=== PATIENT | male | born 1950 | race Caucasian/White ===

== ENCOUNTER 2020-09-07 | Emergency (ER) | payer OTHER, BC ==
--- OUTSIDE RECORDS SUMMARY | 2020-09-07 17:47 | XMS REPORT | Continuity of Care Document ---
:1950 Author Organization [facility] t Address [address] [place] [address] Care Team Providers Name Role Phone Giorgio XIAO, T. Primary Care Physician Janes XIAO, H Attending Clinician Only, Test Attending Clinician Unavailable Problems Condition Condition Condition Status Onset Resolution Last Treating Co mments Source Name Details Category Date Date Treatment Clinician Date Metatarsal Metatarsal Disease Active Overview : Geary priya of priya of - Added Methodi right foot right foot 00:00: automatic st 00 ally from request for surgery [id number] Acquired Acquired Disease Active Overview: Yan renner deformity deformity - Added Meth raymond of right of right 00:00: automatic st toe toe 00 ally from request for surgery [id number] Allergies, Adverse Reactions, Alerts This patient has no known allergies or adverse reactions. Family History Family Member Diagnosis Comments Start Date Stop Date Source Natural father COPD [facility] thodist Natural mother Cancer [facility] thodi Social History Social Habit Start Date Stop Date Quantity Comments Source Sex Assigned At [facility] ethodist Tobacco use and 2019-01-07 2019-01-07 Never used [facility] ethodist exposure 00:00:00 00:00:00 Alcohol intake 2019-01-07 2019-01-07 Current drinker of [facility] 00:00:00 00:00:00 alcohol (finding) Alcohol Comment 2018-01-06 2018-01-06 occasional [facility] ethodist 00:00:00 00:00:00 Smoking Status Start Date Stop Date Source Never smoker Geary Methodis t Medications Ordered Filled Start Stop Current Ordering Indication Dosage Frequency Signature Comments Components Source Medication Medication Date Date Medication? Clinician (SIG) Name Name rosuvastati 2018 Yes 40mg QD Take 40 mg Oh edouard (CRESTOR) 4-05 by mouth Meth raymond 40 MG 11:03: daily. st tablet 10 niacin Yes 500mg QD Take 500 [place] (NIASPAN 4-05 mg by Methodi EXTENDED-RE 11:03: mouth st LEASE) 500 10 nightly. MG CR tablet lisinopril Yes 10mg QD Take 10 mg [place] (PRINIVIL,Z 4-05 by mouth Meth raymond ESTRIL) 10 11:03: daily. st mg tablet 10 Procedures This patient has no known procedures. Plan of Care Planned Activity Planned Date Details Comments Source Future Scheduled 2020-05-05 INFLUENZA VACCINE [facility] Test 00:00:00 [code = INFLUENZA VACCINE] Future Scheduled 2016-12-30 65+ PNEUMOCOCCAL [facility] Test 00:00:00 VACCINE (1 of 1 - PPSV23) [code = 65+ PNEUMOCOCCAL VACCINE (1 of 1 - PPSV23)] Future Scheduled 2001-12-30 COLONOSCOPY SCREENING [facility] Test 00:00:00 [code = COLONOSCOPY SCREENING] Future Scheduled 2001-12-30 SHINGLES VACCINES (#1) [facility] [facility] Test 00:00:00 [code = SHINGLES VACCINES (#1)] Encounters Start End Encounter Admission Attending Care Care Encounter Source Date/Time Date/Time Type Type Clinicians Facility Department ID 2020-04-23 2020-04-23 Telephone KARAN Marrero [id number] 00:00:00 00:00:00 Mike [facility] [id number] [facility] [id number] 2020-04-22 2020-04-22 Laboratory Only, Pcp [facility] [id number] 15:23:29 15:38:29 Only Test PRIMARY [id number] CARE [id number] LANCE [id number] Results This patient has no known results.
--- OUTSIDE RECORDS SUMMARY | 2020-09-07 17:47 | XMS REPORT | Clinical Summary ---
:1950 Author Organization [facility] Address [address] [place] [address] Care Team Providers Name Role Phone Christ Alvares MD Primary Care Provider Allergies No Known Active Allergies Medications Medication Sig Dispensed Refills Start Date End Date Status rosuvastatin (CRESTOR) Take 40 mg by 0 Active 40 MG tablet mouth daily. niacin (NIASPAN Take 500 mg by 0 Active EXTENDED-RELEASE) 500 MG mouth nightly. CR tablet lisinopril Take 10 mg by 0 Activ e (PRINIVIL,ZESTRIL) 10 mg mouth daily. tablet Active Problems Problem Noted Date Metatarsalgia of right foot 01/04/2018 Overview: Added automatically from request for mayur joanie [id number] Acquired deformity of right toe 01/04/2018 Overview: Added automatically from request for mayur joanie [id number] Surgical History Surgery Date Site/Laterality Comments KNEE ARTHROSCOPY acl repair meni scus repair x3 OSTECTOMY, METATARSAL HEAD 01/07/2018 Foot/Right Proce dure: Right 5th metatarsal osteotomy, 5th t oe metatarsophalang eal capsulotomy, possible flexor digitorum longus to extensor de la torre sfer, Partial excision proxima l phalanx of small toe; Surgeon: Zoila Salazar II, MD; Location: [facility] Main OR; Service: Orthope dics; Laterality: Right; Medical devices from this surgery are in the Impla nts section. Medical History Medical History Date Comments Immunization not carried out for other reason Exercises 3 to 4 times per week rides bi ke swim, run about an hour no c/p no dyspnea Staph infection right knee Dental crown present Hypertension Elevated cholesterol Family History Medical History Relation Name Comments COPD Father Cancer Mother Relation Name Status Comments Brother Alive Father Mother Social History Tobacco Use Types Packs/Day Years Used Date Never Smoker Smokeless Tobacco: Never Used Alcohol Use Drinks/Week oz/Week Comments Yes occasional Sex Assigned at Date Recorded Male 01/07/2019 10:16 AM CDT Last Filed Vital Signs Not on file Plan of Treatment Health Maintenance Due Date Last Done Comments COLONOSCOPY SCREENING 12/30/2001 SHINGLES VACCINES (#1) 12/30/2001 65+ PNEUMOCOCCAL VACCINE (1 of 1 - PPSV23) 12/30/2016 INFLUENZA VACCINE 05/05/2020 Implants Implanted Type Area Television Equipment Operator Device Shelf Model / Identifier Expiration Serial / Date Lot Screw Crtcl Slf-Tpng W/ T6 Strdrv Recs Ss 2mm 16mm - [id number] Orthopedic Right: SYNTHES TRAUMA [id number] / Implanted: Qty: 1 on 01/07/2018 by Juan J Salazar II, MD at [facility] Tra[employer] Foot [employer] / Implants VENDOR LOT NA Bit Drl 1.5x96mm Mini Qcp W/ Depth Juan J - [id number] Orthopedic N/A: N/A SYNTHES TRAUMA [id number] / Implanted: 01/07/2018 at [facility] (Quantity not on file) Traum a AND RECON / Implants Results Not on fileafter 09/07/2019
--- NOTE | 2020-09-07 18:32 | EDPHYS ---
Physician Documentation [facility] Name: Lopez Antonio Age: 69 yrs Sex: Male : 1950 Arrival Date: 09/07/2020 Time: 17:49 Bed Waiting Private MD: BANDAR Physician Wes Contreras HPI: 09/07 18:42 This 69 yrs old Male presents to ER via Ambulatory with complaints of Foot kb Infection. 18:42 The patient presents with cellulitis of the lateral side of left foot. Description: kb erythematous, warm. Onset: The symptoms/episode began/occurred this morning. Possible cause(s): unknown. Associated signs and symptoms: Pertinent positives: erythema, swelling, Pertinent negatives: discharge, drainage, foreign body sensation, fever, headache, nausea, shortness of breath, vomiting. Modifying factors: the symptoms are alleviated by nothing, the symptoms are aggravated by touching. Severity of symptoms: At their worst the symptoms were mild, in the emergency department the symptoms are unchanged. The patient has experienced a previous episode. The patient has not recently seen a physician. Pt states he noticed pain to lateral left foot last night, then this morning it was warm, slightly swollen and red. States he had the same infection in June and antibiotics got rid of it so he came in to see if he could get antibiotics before it got worse. Historical: - Allergies: 18:27 No Known Allergies; ss - Home Meds: 18:27 Lisinopril Oral [Active]; Crestor oral oral [Active]; ss - PMHx: 18:27 Hypertension; High Cholesterol; ss - PSHx: 18:27 L knee; ss - Immunization history:: Adult Immunizations up to date. - Social history:: Smoking status: Patient denies any tobacco usage or history of. ROS: 18:41 Constitutional: Negative for fever, chills, and weight loss, Cardiovascular: Negative kb for chest pain, palpitations, and edema, Respiratory: Negative for shortness of breath, cough, wheezing, and pleuritic chest pain, Abdomen/GI: Negative for abdominal pain, nausea, vomiting, diarrhea, and constipation, MS/Extremity: Negative for injury and deformity, Neuro: Negative for headache, weakness, numbness, tingling, and seizure. 18:41 Skin: Positive for cellulitis, erythema, of the lateral side of left foot. Exam: 18:41 Constitutional: This is a well developed, well nourished patient who is awake, alert, kb and in no acute distress. Head/Face: Normocephalic, atraumatic. MS/ Extremity: Pulses equal, no cyanosis. Neurovascular intact. Full, normal range of motion. Neuro: Awake and alert, GCS 15, oriented to person, place, time, and situation. Cranial nerves II-XII grossly intact. Motor strength 5/5 in all extremities. Sensory grossly intact. Cerebellar exam normal. Normal gait. 18:41 Respiratory: the patient does not display signs of respiratory distress, Respirations: normal. 18:41 Skin: cellulitis, that is mild, on the lateral side of left foot. Vital Signs: 18:25 BP 180 / 103; Pulse 63; Resp 16; Temp 97.8(TE); Pulse Ox 99% on R/A; Weight 86.18 kg; ss Height 6 ft. 2 in. (187.96 cm); Pain 5/10; 18:25 Body Mass Index 24.39 (86.18 kg, 187.96 cm) ss MDM: 18:30 Patient medically screened. kb 18:40 Data reviewed: vital signs, nurses notes. Data interpreted: Pulse oximetry: on room air kb is 99 %. Interpretation: normal. Counseling: I had a detailed discussion with the patient and/or guardian regarding: the historical points, exam findings, and any diagnostic results supporting the discharge/admit diagnosis, the need for outpatient follow up, a family practitioner, to return to the emergency department if symptoms worsen or persist or if there are any questions or concerns that arise at home. Administered Medications: No medications were administered Disposition: 09/08 08:26 Co-signature as Attending Physician, Wes Contreras MD I agree with the assessment and baljinder plan of care. Disposition: 09/07/20 18:31 Discharged to Home. Impression: Cellulitis of left lower limb - foot. - Condition is Stable. - Discharge Instructions: Cellulitis, Adult, Welk-en-Uzaj. - Prescriptions for Keflex 500 mg Oral Capsule - take 1 capsule by ORAL route every 8 hours for 10 days; 30 capsule. Bactrim DS 800- 160 mg Oral Tablet - take 1 tablet by ORAL route every 12 hours for 10 days; 20 tablet. - Medication Reconciliation Form, Thank You Letter, Antibiotic Education, Prescription Opioid Use form. - Follow up: Emergency Department; When: As needed; Reason: Worsening of condition. Follow up: Private Physician; When: 2 - 3 days; Reason: Recheck today's complaints, Continuance of care, Re-evaluation by your physician. Signatures: Sapna Marroquin, CHRIS-Sunshine ANNAP-Wes Arrieta MD MD cha Smirch, Shelby, RN RN ss Corrections: (The following items were deleted from the chart) 09/07 18:35 18:31 09/07/2020 18:31 Discharged to Home. Impression: Cellulitis of left lower limb - ss foot. Condition is Stable. Forms are Medication Reconciliation Form, Thank You Letter, Antibiotic Education, Prescription Opioid Use. Follow up: Emergency Department; When: As needed; Reason: Worsening of condition. Follow up: Private Physician; When: 2 - 3 days; Reason: Recheck today's complaints, Continuance of care, Re-evaluation by your physician. kb
--- NOTE | 2020-09-07 18:32 | ER ---
Nurse's Notes [facility] Name: Lopez Antonio Age: 69 yrs Sex: Male : 1950 Arrival Date: 09/07/2020 Time: 17:49 Bed Waiting Private MD: Diagnosis: Cellulitis of left lower limb-foot Presentation: 09/07 18:25 Chief complaint: Patient states: warmth, redness and pain to area on L foot that began ss last night. Pt reports he has had this similar infection back in June. Coronavirus screen: Client denies travel out of the [place] in the last 14 days. Ebola Screen: Patient denies exposure to infectious person. Patient denies travel to an Ebola-affected area in the 21 days before illness onset. Initial Sepsis Screen: Does the patient meet any 2 criteria? No. Patient's initial sepsis screen is negative. Does the patient have a suspected source of infection? Yes: Skin breakdown/wound. Risk Assessment: Do you want to hurt yourself or someone else? Patient reports no desire to harm self or others. Onset of symptoms was September 06, 2020. 18:25 Method Of Arrival: Ambulatory ss 18:25 Acuity: LUISA 4 ss Historical: - Allergies: 18:27 No Known Allergies; ss - Home Meds: 18:27 Lisinopril Oral [Active]; Crestor oral oral [Active]; ss - PMHx: 18:27 Hypertension; High Cholesterol; ss - PSHx: 18:27 L knee; ss - Immunization history:: Adult Immunizations up to date. - Social history:: Smoking status: Patient denies any tobacco usage or history of. Screenin:30 Abuse screen: Denies threats or abuse. Denies injuries from another. Nutritional ss screening: No deficits noted. Tuberculosis screening: Never had TB. Fall Risk None identified. Assessment: 18:30 General: Appears in no apparent distress. comfortable, Behavior is calm, cooperative. ss Pain: Complains of pain in ball of left foot Pain currently is 5 out of 10 on a pain scale. Quality of pain is described as tender. Neuro: Level of Consciousness is awake, alert, obeys commands, Oriented to person, place, time, situation. Cardiovascular: Pulses are palpable in right dorsalis pedis artery and left dorsalis pedis artery. Respiratory: Airway is patent Respiratory effort is even, unlabored, Respiratory pattern is regular. GI: Patient currently denies diarrhea, nausea, vomiting. : No signs and/or symptoms were reported regarding the genitourinary system. EENT: Nares are clear Oral mucosa is moist. Derm: Skin is intact, is healthy with good turgor, Skin is pink, warm \T\ dry. normal. Musculoskeletal: Circulation, motion, and sensation intact. Range of motion: intact in all extremities, Swelling present in ball of left foot. Vital Signs: 18:25 BP 180 / 103; Pulse 63; Resp 16; Temp 97.8(TE); Pulse Ox 99% on R/A; Weight 86.18 kg; ss Height 6 ft. 2 in. (187.96 cm); Pain 5/10; 18:25 Body Mass Index 24.39 (86.18 kg, 187.96 cm) ss ED Course: 17:49 Patient arrived in ED. ds1 18:26 Triage completed. ss 18:27 Arm band placed on right wrist. ss 18:30 [facility]ap[facility]quin [facility]C [facility] kb 18:30 Wes Contreras MD is Attending Physician. kb 18:30 Patient has correct armband on for positive identification. Bed in low position. Call ss light in reach. 18:30 No provider procedures requiring assistance completed. Patient did not have IV access ss during this emergency room visit. Administered Medications: No medications were administered Outcome: 18:30 Discharged to home ambulatory. ss 18:30 Condition: good 18:30 Discharge instructions given to patient, Instructed on discharge instructions, follow up and referral plans. medication usage, Demonstrated understanding of instructions, follow-up care, medications, Prescriptions given X 2. 18:31 Discharge ordered by . kb 18:35 Patient left the ED. ss Signatures: Sapna Marroquin FNP-C FNP-Ckb Sanford, Demi ds1 Melania Pryor RN RN ss
== END 2020-09-07 18:35 | disposition home or self-care (01) ==
CPT/HCPCS: 99282

== ENCOUNTER 2022-11-18 19:30 | Emergency (ER) | payer MEDICARE, OTHER ==
--- OUTSIDE RECORDS SUMMARY | 2022-11-18 19:34 | XMS REPORT | Continuity of Care Document ---
:1950 [facility] t Address [address] [place] [address] Care Team Providers Name Role Phone Suleman Alvares MD Primary Care Physician SALLY LEYVA Attending Clinician Unavailable Navjot PTNeymar Attending Clinician Unavailable Jonna Melendez MD Attending Clinician Alexia Bazzi MD Attending Clinician Allison Ca PT Attending Clinician Unavailable MAIDA CHAVEZ Attending Clinician Unavailable Pedro Attending Clinician Unavailable Suleman Alvares MD Attending Clinician Jeffrey Mobley PT Attending Clinician Unavailable Vesna Baker PT Attending Clinician Unavailable Jin Gómez MD Attending Clinician Janice Maldonado Attending Clinician SEVERO DEL RIO Attending Clinician Unavailable LAWANDA GUERRA Attending Clinician Unavailable SERA AVELAR Attending Clinician Unavailable SANDY GRAY Attending Clinician Unavailable MD SEVERO DEL RIO Attending Clinician Unavailable Mike Marrero MD Attending Clinician Only, Pcp Test Attending Clinician Unavailable MIKE MARRERO Attending Clinician Unavailable JIGAR PÉREZ Attending Clinician Unavailable DR GIOVANNA TAYLOR Attending Clinician Unavailable SALLY LEYVA Admitting Clinician Unavailable Pedro Admitting Clinician Unavailable JONNA MELENDEZ Admitting Clinician Unavailable SANDY GRAY Admitting Clinician Unavailable MD SEVERO DEL RIO Admitting Clinician Unavailable JIGAR PÉREZ Admitting Clinician Unavailable DR GIOVANNA TAYLOR Admitting Clinician Unavailable Payers Payer Name Policy Type Policy Number Effective Date Expiration Date S jovani MEDICARE [place]: [id number] 2016 [employer] 00:00:00 [facility] [id number] 2021 OPTIONS (MEDICARE 00:00:00 SUPPLEMENT) Problems Condition Condition Condition Status Onset Resolution Last Treating Co mments Source Name Details Category Date Date Treatment Clinician Date 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 Added automatic ally from request for surgery [id number] Skin ulcer Skin ulcer Disease Active Overview : Methodi of plantar of plantar 1-[address] aspect of aspect of 00:00: g of this H ospita left foot, left foot, 00 note l limited to limited to might be breakdown breakdown different of skin of skin from the original. Added automatic ally from request for surgery [id number] Metatarsal Metatarsal Disease Active Overview : Methodi priya of priya of 4-[address] right foot right foot 00:00: g of this Hospita 00 note l might be different from the original. Added automatic ally from request for surgery [id number] Acquired Acquired Disease Active Overview: Me thodi deformity deformity 02 Formattin s t of right of right 00:00: g of this Hos jackie toe toe 00 note l might be different from the original. Added automatic ally from request for surgery [id number] Allergies, Adverse Reactions, Alerts Allergy Allergy Status Severity Reaction(s) Onset Inactive Treating Comm ents Source Name Type Date Date Clinician NO KNOWN Drug Active Univers ALLERGIE Class ity of S [facility] Family History Family Member Diagnosis Comments Start Date Stop Date Source Natural brother [facility] Natural father COPD [facility] Natural father Emphysema [facility] Natural mother Cancer [facility] Natural [facility] Social History Social Habit Start Date Stop Date Quantity Comments Source Sex Assigned At [facility] y of [facility] History [facility] Tobacco use and 2022-05-07 2022-05-07 Smokeless tobacco [facility] exposure 00:00:00 00:00:00 non-user Hospital Alcohol intake 2022-05-07 2022-05-07 Current drinker [facility] 00:00:00 00:00:00 of alcohol Hospital (finding) History SDOH 2020-11-14 2020-11-14 4 [facility] Alcohol Frequency 00:00:00 00:00:00 Hospita l History [facility] 2020-11-14 2020-11-14 1 [facility] Alcohol Std 00:00:00 00:00:00 Hospital Drinks Alcohol Comment 2018-01-06 2018-01-06 occasional [facility] 00:[facility] Smoking Status Start Date Stop Date Source Unknown if ever smoked [facility] Never smoked tobacco [facility] Medications Ordered Filled Start Stop Current Ordering Indication Dosage Frequency Signature Comments Components Source Medication Medication Date Date Medication? Clinician (SIG) Name Name rosuvastati Yes 40mg QD Take 40 mg Methodi n (CRESTOR) [address] 40 MG 08:49: nightly. Hospita tablet 21 l cholecalcif Yes 2000U QD Take 2,000 Methodi kaity, 8-[address] vitamin D3, 08:49: mouth Hospi ta 50 mcg 21 daily. l (2,000 unit) capsule capsule ZINC ORAL Yes Take by Metho di 8-[address] 08:49: Hospita 21 l CHROMIUM 2022-0 Yes Take by Method i PICOLINATE 8-[address] ORAL 08:49: Hospita 21 l calcium 2022-0 Yes 1{tbl} Q.5D Take 1 Method i carbonate-v 8-[address] itamin D3 08:49: mouth 2 Hospi ta 500 mg-200 21 (two) l unit per times a tablet day with meals. olmesartan 2022-0 Yes 40mg QD Take 40 mg M ethodi (BENICAR) 8-[address] 40 MG 08:49: daily. Hospita tablet 21 l ubidecareno 2022-0 Yes QD Take by Met priscilla parker (CO Q-10 [address] ORAL) 08:49: nightly. Hospita 21 l rosuvastati 2022-0 Yes 40mg QD Take 40 mg Methodi n (CRESTOR) 8-[address] 40 MG 08:49: nightly. Hospita tablet 21 l cholecalcif 2-0 Yes 2000U QD Take 2,000 Methodi kaity, 8- Units by st vitamin D3, 08:49: mouth Hospi ta 50 mcg 21 daily. l (2,000 unit) capsule capsule ZINC ORAL 2021-0 Yes Take by Metho di 8-[address] 08:49: Hospita 21 l CHROMIUM 2022-0 Yes Take by Method i PICOLINATE 8-[address] ORAL 08:49: Hospita 21 l calcium 2022-0 Yes 1{tbl} Q.5D Take 1 Method i carbonate-v 8-[address] itamin D3 08:49: mouth 2 Hospi ta 500 mg-200 21 (two) l unit per times a tablet day with meals. olmesartan 2022-0 Yes 40mg QD Take 40 mg M ethodi (BENICAR) 8-[address] 40 MG 08:49: daily. Hospita tablet 21 l ubidecareno 2022-0 Yes QD Take by Met priscilla parker (CO Q-10 8-[address] ORAL) 08:49: nightly. Hospita 21 l cephalexin 2022-0 2022- No 500mg Q.25D Take 1 Me thodi (Keflex) 18 04-[address] 500 MG 00:00: 04:59 (500 mg Hospita capsule 00 :00 total) by l mouth 4 (four) times a day for 5 days. cephalexin No 500mg Q.25D Take 1 Me thodi (Keflex) 01-20-[address] 500 MG 00:00: 04:59 (500 mg Hospita capsule 00 :00 total) by l mouth 4 (four) times a day for 5 days. niacin 2021- No 500mg QD Take 500 Metho di (NIASPAN 4-11 04-[address] EXTENDED-RE 16:20: 00:00 mouth Hosp [place] LEASE) 500 41 :00 nightly. l MG CR tablet niacin No 500mg QD Take 500 Metho di (NIASPAN 4-11 04-[address] EXTENDED-RE 16:20: 00:00 mouth Hosp [place] LEASE) 500 41 :00 nightly. l MG CR tablet lisinopril No 10mg QD Take 10 mg Methodi (PRINIVIL,Z 01-13-[address] ESTRIL) 10 16:20: 00:00 daily. [facility]osp [place] mg tablet 14 :00 l lisinopril No 10mg QD Take 10 mg Methodi (PRINIVIL,Z 4-[address] ESTRIL) 10 16:20: 00:00 daily. Hosp [place] mg tablet 14 :00 l calcium calcium No 1{tbl} BID calcium [place] carbonate carbonate carbonate [facility] 500 500 500 Urology mg-vitamin mg-vitamin mg-vitamin D3 5 mcg D3 5 mcg D3 5 mcg (200 unit) (200 unit) (200 unit) tablet 1 tablet 1 tablet 1 {tbl} twice {tbl} twice {tbl} a day by a day by twice a oral route. oral route. day by oral route. olmesartan olmesartan No olmesartan Oh 40 mg 40 mg 40 mg [facility] tablet TAKE tablet TAKE tablet Urology 1 TABLET BY 1 TABLET BY TAKE 1 MOUTH EVERY MOUTH EVERY TABLET BY DAY DAY MOUTH EVERY DAY Paxlovid Paxlovid No Paxlovid Radha ston 300 mg (150 300 mg (150 300 mg [facility] mg x 2)-100 mg x 2)-100 (150 mg x Urology mg tablets mg tablets 2)-100 mg in a dose in a dose tablets in pack (EUA) pack (EUA) a dose pack (EUA) rosuvastati rosuvastati No rosuvastat Oh n 40 mg n 40 mg in 40 mg [facility] tablet TAKE tablet TAKE tablet Urology 1 TABLET BY 1 TABLET BY TAKE 1 MOUTH EVERY MOUTH EVERY TABLET BY DAY DAY MOUTH EVERY DAY Xarelto 20 Xarelto 20 No Xarelto 20 Oh mg tablet mg tablet mg tablet [facility] TAKE 1 TAKE 1 TAKE 1 Urology TABLET BY TABLET BY TABLET BY MOUTH EVERY MOUTH EVERY MOUTH DAY WITH DAY WITH EVERY DAY FOOD FOOD WITH FOOD zinc zinc No zinc Oh [facility] Urology metoprolol metoprolol No metoprolol [place] succinate succinate succinate [facility] ER 25 mg ER 25 mg ER 25 mg Uro logy tablet,exte tablet,exte tablet,ext nded nded ended release 24 release 24 release 24 hr TAKE 1 hr TAKE 1 hr TAKE 1 TABLET BY TABLET BY TABLET BY MOUTH TWICE MOUTH TWICE MOUTH DAILY DAILY TWICE DAILY olmesartan olmesartan No olmesartan [place] 40 mg 40 mg 40 mg [facility] tablet TAKE tablet TAKE tablet Urology 1 TABLET BY 1 TABLET BY TAKE 1 MOUTH EVERY MOUTH EVERY TABLET BY DAY DAY MOUTH EVERY DAY rosuvastati rosuvastati No rosuvastat Oh n 40 mg n 40 mg in 40 mg [facility] tablet TAKE tablet TAKE tablet Urology 1 TABLET BY 1 TABLET BY TAKE 1 MOUTH EVERY MOUTH EVERY TABLET BY DAY DAY MOUTH EVERY DAY Xarelto 20 Xarelto 20 No Xarelto 20 Oh mg tablet mg tablet mg tablet [facility] TAKE 1 TAKE 1 TAKE 1 Urology TABLET BY TABLET BY TABLET BY MOUTH EVERY MOUTH EVERY MOUTH EVENING FOR EVENING FOR EVERY ATRIAL ATRIAL EVENING FIBRILLATIO FIBRILLATIO FOR ATRIAL N N FIBRILLATI ON calcium calcium No 1{tbl} BID calcium [place] carbonate carbonate carbonate [facility] 500 500 500 Urology mg-vitamin mg-vitamin mg-vitamin D3 5 mcg D3 5 mcg D3 5 mcg (200 unit) (200 unit) (200 unit) tablet 1 tablet 1 tablet 1 {tbl} twice {tbl} twice {tbl} a day by a day by twice a oral route. oral route. day by oral route. cholecalcif cholecalcif No 2000U cholecalci Oh kaity kaity ferol [facility] (vitamin (vitamin (vitamin Uro logy D3) 50 mcg D3) 50 mcg D3) 50 mcg (2,000 (2,000 (2,000 unit) unit) unit) capsule capsule capsule 2000 units 2000 units 2000 units by oral by oral by oral route. route. route. lisinopril lisinopril No 10mg lisinopril Oh 10 mg 10 mg 10 mg [facility] tablet 10 tablet 10 tablet 10 Urology mg by oral mg by oral mg by oral route. route. route. metoprolol metoprolol No metoprolol Oh succinate succinate succinate [facility] ER 25 mg ER 25 mg ER 25 mg Uro logy tablet,exte tablet,exte tablet,ext nded nded ended release 24 release 24 release 24 hr TAKE 1 hr TAKE 1 hr TAKE 1 TABLET BY TABLET BY TABLET BY MOUTH TWICE MOUTH TWICE MOUTH DAILY DAILY TWICE DAILY Niaspan 500 Niaspan 500 No 500mg Niaspan Oh mg mg 500 mg [facility] tablet,exte tablet,exte tablet,ext Urology nded nded ended release 500 release 500 release mg by oral mg by oral 500 mg by route. route. oral route. olmesartan olmesartan No olmesartan Oh 40 mg 40 mg 40 mg [facility] tablet TAKE tablet TAKE tablet Urology 1 TABLET BY 1 TABLET BY TAKE 1 MOUTH EVERY MOUTH EVERY TABLET BY DAY DAY MOUTH EVERY DAY rosuvastati rosuvastati No 40mg rosuvastat [place] n 40 mg n 40 mg in 40 mg [facility] tablet 40 tablet 40 tablet 40 Urology mg by oral mg by oral mg by oral route. route. route. Xarelto 20 Xarelto 20 No Xarelto 20 Oh mg tablet mg tablet mg tablet [facility] TAKE 1 TAKE 1 TAKE 1 Urology TABLET BY TABLET BY TABLET BY MOUTH EVERY MOUTH EVERY MOUTH EVENING FOR EVENING FOR EVERY ATRIAL ATRIAL EVENING FIBRILLATIO FIBRILLATIO FOR ATRIAL N N FIBRILLATI ON calcium calcium No 1{tbl} BID calcium [place] carbonate carbonate carbonate [facility] 500 500 500 Urology mg-vitamin mg-vitamin mg-vitamin D3 5 mcg D3 5 mcg D3 5 mcg (200 unit) (200 unit) (200 unit) tablet 1 tablet 1 tablet 1 {tbl} twice {tbl} twice {tbl} a day by a day by twice a oral route. oral route. day by oral route. olmesartan olmesartan No olmesartan Oh 40 mg 40 mg 40 mg [facility] tablet TAKE tablet TAKE tablet Urology 1 TABLET BY 1 TABLET BY TAKE 1 MOUTH EVERY MOUTH EVERY TABLET BY DAY DAY MOUTH EVERY DAY rosuvastati rosuvastati No rosuvastat [place] n 40 mg n 40 mg in 40 mg [facility] tablet TAKE tablet TAKE tablet Urology 1 TABLET BY 1 TABLET BY TAKE 1 MOUTH EVERY MOUTH EVERY TABLET BY DAY DAY MOUTH EVERY DAY Xarelto 20 Xarelto 20 No Xarelto 20 Oh mg tablet mg tablet mg tablet [facility] TAKE 1 TAKE 1 TAKE 1 Urology TABLET BY TABLET BY TABLET BY MOUTH EVERY MOUTH EVERY MOUTH DAY WITH DAY WITH EVERY DAY FOOD FOOD WITH FOOD Immunizations Ordered Immunization Filled Immunization Date Status Commen ts Source Name Name [facility] COVID-19 MRNA 2021-09-23 Completed [facility] VACCINATION 00:00:00 [facility] COVID-19 MRNA 2021-09-23 Completed Meth odist VACCINATION 00:00:00 [facility] influenza, influenza, 2021-09-04 Completed [place] [facility] injectable, injectable, 00:00:00 Urology quadrivalent quadrivalent influenza, influenza, 2021-09-04 [facility], [facility] Urology quadrivalent quadrivalent influenza, influenza, 2021-09-04 Completed [facility] injectable, injectable, 00:00:00 Urology quadrivalent quadrivalent influenza, influenza, 2021-09-04 Completed [facility] injectable, injectable, 00:00:00 Urology quadrivalent quadrivalent COVID-19, mRNA, COVID-19, mRNA, 2020-12-19 Completed [place] [facility] LNP-S, PF, 30 LNP-S, PF, 30 00:00:00 Urology mcg/0.3 mL dose mcg/0.3 mL dose ([employer]) ([employer]) COVID-19, mRNA, COVID-19, mRNA, 2020-12-19 Completed [place] [facility] LNP-S, PF, 30 LNP-S, PF, 30 00:00:00 Urology mcg/0.3 mL dose mcg/0.3 mL dose ([employer]) ([employer]) COVID-19, mRNA, COVID-19, mRNA, 2020-12-19 Completed [place] [facility] LNP-S, PF, 30 LNP-S, PF, 30 00:00:00 Urology mcg/0.3 mL dose mcg/0.3 mL dose ([employer]) ([employer]) PFIZER COVID-19 MRNA 2020-12-19 Completed Meth odist VACCINATION 00:00:00 [facility] PFIZER COVID-19 MRNA 2020-12-19 Completed Meth odist VACCINATION 00:00:00 [facility] COVID-19, mRNA, COVID-19, mRNA, 2020-11-28 Completed [place] [facility] LNP-S, PF, 30 LNP-S, PF, 30 00:00:00 Urology mcg/0.3 mL dose mcg/0.3 mL dose ([employer]) ([employer]) COVID-19, mRNA, COVID-19, mRNA, 2020-11-28 Completed [place] [facility] LNP-S, PF, 30 LNP-S, PF, 30 00:00:00 Urology mcg/0.3 mL dose mcg/0.3 mL dose ([employer]) ([employer]) COVID-19, mRNA, COVID-19, mRNA, 2020-11-28 Completed [place] [facility] LNP-S, PF, 30 LNP-S, PF, 30 00:00:00 Urology mcg/0.3 mL dose mcg/0.3 mL dose ([employer]) ([employer]) PFIZER COVID-19 MRNA 2020-11-28 Completed Meth odist VACCINATION 00:00:00 [facility] PFIZER COVID-19 MRNA 2020-11-28 Completed [facility] odist VACCINATION 00:00:00 Hospital Vital Signs Vital Name Observation Time Observation Value Comments Source BP Diastolic 2022-11-12 00:00:00 88 mm[Hg] [facility] Height 2022-11-12 00:00:00 74 [in_i] [facility] BMI (Body Mass 2022-11-12 00:00:00 25.7 kg/m2 [place] Index) Urology BP Systolic 2022-11-12 00:00:00 140 mm[Hg] [facility] Body Weight 2022-11-12 00:00:00 200 [lb_av] [facility] BP Diastolic 2022-08-11 00:00:00 78 mm[Hg] [facility] Height 2022-08-11 00:00:00 74 [in_i] [facility] BMI (Body Mass 2022-08-11 00:00:00 25.7 kg/m2 [place] [facility] Index) Urology BP Systolic 2022-08-11 00:00:00 128 mm[Hg] [facility] Body Weight 2022-08-11 00:00:00 200 [lb_av] [facility] BP Diastolic 2022-02-07 00:00:00 72 mm[Hg] [facility] Height 2022-02-07 00:00:00 74 [in_i] [facility] BMI (Body Mass 2022-02-07 00:00:00 25.7 kg/m2 [place] [facility] Index) Urology BP Systolic 2022-02-07 00:00:00 136 mm[Hg] [facility] Body Weight 2022-02-07 00:00:00 200 [lb_av] [facility] BP Diastolic 2021-11-29 00:00:00 60 mm[Hg] [facility] Height 2021-11-29 00:00:00 74 [in_i] [facility] BMI (Body Mass 2021-11-29 00:00:00 25.7 kg/m2 [place] [facility] Index) Urology BP Systolic 2021-11-29 00:00:00 122 mm[Hg] [facility] Body Weight 2021-11-29 00:00:00 200 [lb_av] [facility]rology Systolic blood 2022-01-20 18:50:00 144 mm[Hg] [facility] pressure Diastolic blood 2022-01-20 18:50:00 78 mm[Hg] [facility] pressure Heart rate 2022-01-20 18:50:00 56 /min [facility] Respiratory rate 2022-01-20 18:50:00 18 /min [facility] Oxygen saturation in 2022-01-20 18:50:00 99 /min [facility] Arterial blood by Pulse oximetry Body temperature 2022-01-20 18:35:00 36.5 Rosario [facility] Body weight 2022-01-20 15:11:00 90.447 kg [facility] BMI 2022-01-20 15:11:00 25.60 kg/m2 [facility] Body height 2022-01-13 21:15:00 188 cm [facility] Procedures Procedure Date / Time Performing Clinician Source Performed CT UROGRAM 2022-10-17 14:22:44 [facility] POC CREATININE 2022-10-17 13:28:00 [facility] ESTIMATED GFR 2022-10-17 13:28:[address] [facility] [address], abdomen + pelvis, 2022-08-11 00:00:00 [place] [facility] w/wo contrast Urology XR SHOULDER 2+ VW LEFT 2022-05-07 14:00:01 Alexia Bazzi [facility] [place] ARTHROCENTESIS 2022-05-07 13:50:00 [facility] ASPIR&/INJ MAJOR JT/BURSA W/O US OR [place] < 1 HOUR 2022-01-20 19:09:23 [facility] SURGICAL PATHOLOGY 2022-01-20 19:06:00 [facility] REQUEST CYTOLOGY 2022-01-20 18:11:00 [facility] (NON-GYNECOLOGICAL) REQUEST [place] AN ELECTIVE 2022-01-20 16:54:00 [facility] spital SUPRAGLOTTIC AIRWAY CYSTO, URETEROSCOPY 2022-01-20 16:39:00 [facility] POC GLUCOSE 2022-01-20 15:19:00 [facility] Cystoscopy, with 2022-01-20 00:00:00 Adriano tyson Ureteroscopy, with Urology Retrograde Ureteropyelogram, with Stent Placement (Surg) ECG PRE/POST OP 2022-01-13 21:52:17 [facility] HEMOGLOBIN A1C 2022-01-13 21:41:00 Arnold, [facility] HC COMPLETE BLD COUNT 2022-01-13 21:41:00 [facility], [facility] W/AUTO DIFF BASIC METABOLIC PANEL 2022-01-13 21:37:00 Arnold, [facility] ESTIMATED GFR 2022-01-13 21:37:00 Arnold, [facility] H ospital CT ABDOMEN PELVIS W WO 2021-11-26 21:28:08 Giorgio Suleman [facility] CONTRAST Colonoscopy 2020-10-05 00:00:00 Adriano mack Urology Plan of Care Planned Activity Planned Date Details Comments Source Diagnostic Test 2022-11-12 urinalysis, dipstick [place] [facility] Pending 00:00:00 [code = urinalysis, Urology dipstick] Future Scheduled Test 2022-10-29 Hepatitis C screening [facility] 15:55:06 (procedure) [code = 440836265] Future Scheduled Test 2022-10-29 COLONOSCOPY SCREENING [facility] 15:55:06 [code = COLONOSCOPY SCREENING] Future Scheduled Test 2022-10-29 SHINGLES VACCINES (1 [facility] 15:55:06 of 2) [code = SHINGLES VACCINES (1 of 2)] Future Scheduled Test 2022-10-29 65+ PNEUMOCOCCAL [facility] 15:55:06 VACCINE (1 - PCV) [code = 65+ PNEUMOCOCCAL VACCINE (1 - PCV)] Future Scheduled Test 2022-10-29 COVID-19 VACCINE (4 - [facility] 15:55:06 Booster for Pfizer series) [code = COVID-19 VACCINE (4 - Booster for Pfizer series)] Future Scheduled Test 2022-10-29 INFLUENZA VACCINE [facility] 15:55:06 [code = INFLUENZA VACCINE] Future Scheduled Test 2022-08-12 HEPATITIS B VACCINES [facility] 07:12:04 (1 of 3 - 3-dose series) [code = HEPATITIS B VACCINES (1 of 3 - 3-dose series)] Future Scheduled Test 2022-08-12 Hepatitis C screening [facility] 07:12:04 (procedure) [code = 630906805] Future Scheduled Test 2022-08-12 COLONOSCOPY SCREENING [facility] 07:12:04 [code = COLONOSCOPY SCREENING] Future Scheduled Test 2022-08-12 SHINGLES VACCINES (1 [facility] 07:12:04 of 2) [code = SHINGLES VACCINES (1 of 2)] Future Scheduled Test 2022-08-12 65+ PNEUMOCOCCAL [facility] 07:12:04 VACCINE (1 - PCV) [code = 65+ PNEUMOCOCCAL VACCINE (1 - PCV)] Future Scheduled Test 2022-08-12 COVID-19 VACCINE (4 - [facility] 07:12:04 Booster for Pfizer series) [code = COVID-19 VACCINE (4 - Booster for Pfizer series)] Future Scheduled Test 2022-08-12 INFLUENZA VACCINE [facility] 07:12:04 [code = INFLUENZA VACCINE] Future Appointment 2023-05-13 Bailey Baez [address] 09:00:00 [facility] [address]; , [place] [address] Encounters Start End Encounter Admission Attending Care Care Encounter Source Date/Time Date/Time Type Type Clinicians Facility Department ID 2022-11-13 2022-11-13 Outpatient GORDON, [facility] CAR [id number] [facility] 06:26:00 23:59:00 SALLY 2022-11-12 2022-11-12 Bailey Pineda [facility] [place] - [id number] [place] 00:00:00 00:00:00 Nestor, METHODS STUDY ANALYST: Adriano Sloan [id number] [facility] [address], [place] [address] , Ph. 2022-10-22 2022-10-22 Documentat Lazaro-Bar 1.2.840.1 [id number] Methodi 00:00:00 00:00:00 ion kj, [address]21.1.[address] [place] 3.430.2.7 Hospit a .3.692075 l .8 2022-10-17 2022-10-17 [facility] 1.2.840.1 [id number] Methodi 06:50:11 23:59:00 Encounter Jonna [id number] 542 s sukhi [place] 3.430.2.7 Hospit a .3.912850 l .8 2022-10-17 2022-10-17 Outpatient [facility] [id number] [place] 00:00:00 00:00:00 JONNA benz 2022-10-17 2022-10-17 Travel 1.2.840.1 [id number] [id number] Methodi 00:00:00 00:00:[address] 3.430.2.7 0.2.7.3.698 Ho spita .3.120620 084.8 l .8 2022-09-25 2022-09-25 Documentat [facility] 1.2.840.1 [id number] Methodi 00:00:00 00:00:00 ion underwood, 76446.1.[address] [place] 3.430.2.7 Hospit a .3.688508 l .8 2022-09-24 2022-09-24 Transcribe Nora, 1.2.840.1 [id number] Methodi 00:00:00 00:00:00 Orders Jonna [address]44.1.[address] [place] 3.430.2.7 Hospit a .3.195100 l .8 2022-09-22 2022-09-22 Treatment SitterAlexia 1.2.840.1 [id number] Methodi 07:00:00 08:00:[address]ym[address] 3.430.2.7 Hospit a .3.675812 l .8 2022-09-22 2022-09-22 Outpatient SITTER, [facility] [id number] [place] 00:00:00 00:00:00 ALEXIA Méndez Method i st 2022-09-08 2022-09-08 Evaluation Alexia Bazzi CTalat 1.2.840.1 [id number] Methodi 07:00:00 08:00:[address]ym[address] 3.430.2.7 Hospit a .3.943206 l .8 2022-09-08 2022-09-08 Outpatient SITTER, [facility] [id number] [place] 00:00:00 00:00:00 ALEXIA [address] 2022-09-08 2022-09-08 Plan of 1.2.840.1 [id number] Methodi 00:00:00 00:00:[address] Documentat 3.430.2.7 Hos jackie ion .3.023299 l .8 2022-09-01 2022-09-01 Treatment Sitter Alexia C. 1.2.840.1 [id number] Methodi 07:00:00 08:00:00 [place] [address] 3.430.2.7 Hospit a .3.074708 l .8 2022-09-01 2022-09-01 Outpatient SITTER, [facility] [id number] [place] [address] 00:00:00 00:00:00 ALEXIA [address] 2022-08-25 2022-08-25 Treatment Sitter Alexia CTalat 1.2.840.1 104 858802 [id number] Methodi 07:00:00 08:00:00 [place] [address].1.[address] 3.430.2.7 Hospit a .3.604566 l .8 2022-08-25 2022-08-25 Outpatient SITTER, [facility] [id number] [place] [address] 00:00:00 00:00:00 ALEXIA [address] 2022-08-21 2022-08-22 Inpatient JALAL, [facility] CAR 7502 [facility] 07:38:00 11:23:00 SALLY 2022-08-20 2022-08-20 Treatment Sitter Alexia CTalat 1.2.840.1 104 [id number] Methodi 07:00:00 08:00:00 [place] [address] 3.430.2.7 Hospit a .3.826748 l .8 2022-08-20 2022-08-20 Outpatient SITTER, [facility] [id number] [address] [place] [address] 00:00:00 00:00:00 ALEXIA [address] 2022-08-18 2022-08-18 Outpatient MANIAR, [facility] CAR 7501 [facility] 07:15:00 23:59:00 MAIDA 2022-08-12 2022-08-12 Treatment Alexia Bazzi 1.2.840.1 104 113378 [id number] Methodi 07:00:00 08:00:00 Ca[address] 3.430.2.7 Hospit a .3.552848 l .8 2022-08-12 2022-08-12 Treatment Alexia Bazzi 1.2.840.1 104 362692 [id number] Methodi 07:00:00 08:00:00 Roby Allison [address]73.1.[address] 3.430.2.7 Hospit a .3.236133 l .8 2022-08-12 2022-08-12 Outpatient Baum_L [facility] 488102- 202 [place] 00:00:00 00:00:00 10996 [facility] 2022-08-12 2022-08-12 Outpatient Baum_L [facility] [id number]- 202 [place] 00:00:00 00:00:00 55305 [facility] 2022-08-12 2022-08-12 Outpatient Baum_L [facility] [id number]- 202 [place] 00:00:00 00:00:00 85538 [facility] 2022-08-11 2022-08-11 Outpatient Baum_L [facility] 843182- 202 [place] 00:00:00 00:00:00 02380 [facility] 2022-08-11 2022-08-11 [facility] [place] - [id number] [place] 00:00:00 00:00:00 FELIX Baez: Adriano Sloan 12808 [facility] Urology [address] [place] [address], [place] [address] , Ph. 2022-08-05 2022-08-05 Treatment MooseAlexia kenney 1.2.840.1 104 810850 [id number] Methodi 07:00:00 08:00:00 [place] [address] 3.430.2.7 Hospit a .3.263544 l .8 2022-08-05 2022-08-05 Treatment Sitter, Alexia C. 1.2.840.1 104 753902 [id number] Methodi 07:00:00 08:00:00 Kaleb Cay [address]91[address]1.[address] 3.430.2.7 Hospit a .3.910682 l .8 2022-08-05 2022-08-05 Plan of 1.2.840.1 287836401 566895 7443 Methodi 00:00:00 00:00:[address] Documentat 3.430.2.7 Hos jackie ion .3.084304 l .8 2022-08-05 2022-08-05 Plan of 1.2.840.1 [id number] 642201 7307 Methodi 00:00:00 00:00:[address] Documentat 3.430.2.7 Hos jackie ion .3.150487 l .8 2022-07-22 2022-07-22 Treatment Sitter, Alexia C. 1.2.840.1 104 730009 [id number] Methodi 07:00:00 08:00:00 Roby Allison [address]1.[address] 3.430.2.7 Hospit a .3.185721 l .8 2022-07-22 2022-07-22 Treatment Sitter, Alexia C. 1.2.840.1 104 276870 [id number] Methodi 07:00:00 08:00:00 [place] [address] 3.430.2.7 Hospit a .3.307515 l .8 2022-07-15 2022-07-15 Treatment Sitter, Alexia C. 1.2.840.1 104 549855 [id number] Methodi 08:00:00 09:11:01 [address] Morfin [address].1.[address] 3.430.2.7 Hospit a .3.119774 l .8 2022-07-15 2022-07-15 Treatment Sitter, Alexia C. 1.2.840.1 104 839200 [id number] Methodi 08:00:00 09:11:01 [address] 3.430.2.7 Hospit a .3.201219 l .8 2022-07-07 2022-07-07 Treatment SitCliff kenneyothy C. 1.2.840.1 104 493564 [id number] Methodi 07:00:00 08:00:[address] 3.430.2.7 Hospit a .3.964590 l .8 2022-07-07 2022-07-07 Treatment SitterCliffAlexia C. 1.2.840.1 104 653799 [id number] Methodi 07:00:00 08:00:[address] 3.430.2.7 Hospit a .3.717514 l .8 2022-07-02 2022-07-02 Treatment Lazaro-Bar 1.2.840.1 746445991 [id number] Methodi 07:00:00 08:00:00 underwood, 74583.1.[address] Neymar 3.430.2.7 Hospit a .3.645097 l .8 2022-07-02 2022-07-02 Treatment Lazaro-Bar 1.2.840.1 474001473 [id number] Methodi 07:00:00 08:00:00 underwood, 24580.1.[address] Neymar 3.430.2.7 Hospit a .3.989609 l .8 2022-07-02 2022-07-02 Plan of 1.2.840.1 272121214 393934 1224 Methodi 00:00:00 00:00:[address] Documentat 3.430.2.7 Hos jackie ion .3.484067 l .8 2022-07-02 2022-07-02 Plan of 1.2.840.1 421237036 300421 4915 Methodi 00:00:00 00:00:[address] Documentat 3.430.2.7 Hos jackie ion .3.386267 l .8 2022-06-30 2022-06-30 Treatment Suleman Alvares T. 1.2.840.1 104 309748 [id number] Methodi 07:00:00 08:00:00 [place] [address].[address] 3.430.2.7 Hospit a .3.679364 l .8 2022-06-30 2022-06-30 Treatment Suleman Alvares T. 1.2.840.1 104 678997 [id number] Methodi 07:00:00 08:00:00 CaKaleb reynagay [address].1.[address] 3.430.2.7 Hospit a .3.186492 l .8 2022-06-23 2022-06-23 Treatment Carlitos Alvaresery T. 1.2.840.1 104 909818 [id number] Methodi 07:00:00 08:00:00 LazaroCrSeveriano Neymar [address] 3.430.2.7 Hospit a .3.258372 l .8 2022-06-23 2022-06-23 Treatment Suleman Alvares T. 1.2.840.1 104 506887 [id number] Methodi 07:00:00 08:00:00 LazaroDianne Granadosibal [address] 3.430.2.7 Hospit a .3.782471 l .8 2022-06-18 2022-06-18 Treatment Lazaro-Bar 1.2.840.1 491254784 [id number] Methodi 08:00:00 09:00:00 underwood, 50207.1.[address] Neymar 3.430.2.7 Hospit a .3.874323 l .8 2022-06-18 2022-06-18 Treatment Lazaro-Bar 1.2.840.1 637954838 [id number] Methodi 08:00:00 09:00:00 underwood, 03888.1.[address] Neymar 3.430.2.7 Hospit a .3.290815 l .8 2022-06-10 2022-06-10 Treatment Mirelanganti, 1.2.840.1 770471229 [id number] Methodi 15:00:00 16:00:[address] 3.430.2.7 Hospit a .3.010839 l .8 2022-06-10 2022-06-10 Treatment Maringanti, 1.2.840.1 [id number] Methodi 15:00:00 16:00:[address] 3.430.2.7 Hospit a .3.943621 l .8 2022-06-03 2022-06-03 Evaluation Alexia Bazzi 1.2.840.1 10 3309848 [id number] Methodi 09:00:00 10:00:[address] Ves[address]78.1.[address] 3.430.2.7 Hospit a .3.733938 l .8 2022-06-03 2022-06-03 Evaluation Alexia Bazzi 1.2.840.1 10 0529211 [id number] Methodi 09:00:00 10:00:00 Vesna [address]6501.1.[address] 3.430.2.7 Hospit a .3.836897 l .8 2022-06-03 2022-06-03 Plan of 1.2.840.1 582832814 747946 6319 Methodi 00:00:00 00:00:[address] Documentat 3.430.2.7 Hos jackie ion .3.676175 l .8 2022-06-03 2022-06-03 Plan of 1.2.840.1 379225794 121583 7429 Methodi 00:00:00 00:00:[address] Documentat 3.430.2.7 Hos jackie ion .3.170463 l .8 2022-05-20 2022-05-20 Travel 1.2.840.1 1.2.833.918 7414 628536 Methodi 00:00:00 00:00:[address] 3.430.2.7 0.2.7.3.698 Ho spita .3.880752 084.8 l .8 2022-05-20 2022-05-20 Travel 1.2.840.1 1.2.052.258 9772 434368 Methodi 00:00:00 00:00:[address] 3.430.2.7 0.2.7.3.698 Ho spita .3.838092 084.8 l .8 2022-05-07 2022-05-07 Office Sitter, 1.2.840.1 203600771 527831 3345 Methodi 08:50:00 09:37:53 Visit Alexia Christiansen 37521.1.1 745 s t 3.430.2.7 Hospit a .3.108761 l .8 2022-05-07 2022-05-07 Office Sitter, 1.2.840.1 036291783 634537 1160 Methodi 08:50:00 09:37:53 Visit Alexia Christiansen 18553.1.1 745 s t 3.430.2.7 Hospit a .3.166438 l .8 2022-05-07 2022-05-07 Outpatient SITTER, [facility] [id number] [address] [place] [address] 00:00:00 00:00:00 ALEXIA Kirkland2 [facility] 2022-05-06 2022-05-06 Travel 1.2.840.1 1.2.084.794 7773 963709 Methodi 00:00:00 00:00:[address] 3.430.2.7 0.2.7.3.698 Ho spita .3.139751 084.8 l .8 2022-05-06 2022-05-06 Travel 1.2.840.1 1.2.804.674 3452 728106 Methodi 00:00:00 00:00:[address] 3.430.2.7 0.2.7.3.698 spita .3.538348 084.8 l .8 2022-02-17 2022-02-17 Outpatient Baum_L [facility] [id number] [place] 00:00:00 00:00:00 [facility] 2022-02-07 2022-02-07 Outpatient Baum_L [facility] [id number] [place] 04:48:00 04:48:00 [facility] 2022-02-07 2022-02-07 Outpatient Nora, U [facility] [id number] a-d 00:00:00 00:00:00 Jonna 05f-11ec-a [id number] 2022-02-07 2022-02-07 Jonna [facility] [place] - [id number] [place] 00:00:00 00:00:00 MD Nora: Adriano Metr o [address] [facility] Urology [facility] Urology [facility] [address], [place] [address] , Ph. 2022-01-20 2022-01-20 [facility], 1.2.840.1 [id number] Methodi 09:31:00 14:08:00 Encounter Jonna 70658.1.1 940 s t Bandar 3.430.2.7 Hospit a .3.110670 l .8 2022-01-20 2022-01-20 [facility], 1.2.840.1 Methodi 09:31:00 14:08:00 Encounter Jonna 67358.1.1 940 s t Bandar 3.430.2.7 Hospit a .3.456960 l .8 2022-01-20 2022-01-20 Surgery [facility], 1.2.840.1 [id number] 057639 8082 Methodi 11:38:00 13:33:[address] Bandar 3.430.2.7 Hospit a .3.387024 l .8 2022-01-20 2022-01-20 Surgery Nora, 1.2.840.1 [id number] 138111 0216 Methodi 11:38:00 13:33:[address] Bandar 3.430.2.7 Hospit a .3.879276 l .8 2022-01-20 2022-01-20 Anesthesia Jin Gómez 1.2.840.1 1 [id number] [id number] Methodi 11:39:00 13:08:00 Event Janice Barrett 26715.1.[address] 3.430.2.7 Hospit a .3.390294 l .8 2022-01-20 2022-01-20 Anesthesia Jin Gómez 1.2.840.1 1 35438565 [id number] Methodi 11:39:00 13:08:00 Event Janice Barrett 91647.1.[address] 3.430.2.7 Hospit a .3.743158 l .8 2022-01-13 2022-01-13 Pre-Admiss Nora, 1.2.840.1 [id number] 202 [id number] Methodi 16:00:00 17:00:00 ion Jonna 29885.1.[address] Testing Bandar 3.430.2.7 Hospit a .3.968018 l .8 2022-01-13 2022-01-13 Pre-Admiss Nora, 1.2.840.1 [id number] 184 [id number] Methodi 16:00:00 17:00:00 ion Jonna 97647.1.[address] Testing Bandar 3.430.2.7 Hospit a .3.717044 l .8 2022-01-13 2022-01-13 Travel 1.2.840.1 1.2.972.767 5296 955181 Methodi 00:00:00 00:00:[address] 3.430.2.7 0.2.7.3.698 Ho spita .3.891378 084.8 l .8 2022-01-13 2022-01-13 Travel 1.2.840.1 1.2.088.353 5931 142251 Methodi 00:00:00 00:00:[address] 3.430.2.7 0.2.7.3.698 Ho spita .3.682642 084.8 l .8 2022-01-10 2022-01-10 Outpatient [place]um_L [facility] [place] 335[place]- [place] 03:13:00 03:13:00 [facility] 2022-01-10 2022-01-10 Outpatient Baum_L [facility]U 099056- [place] 03:13:00 03:13:00 [facility] 2022-01-10 2022-01-10 Travel 1.2.840.1 1.2.659.811 8789 983730 Methodi 00:00:00 00:00:[address] 3.430.2.7 0.2.7.3.698 Ho spita .3.320133 084.8 l .8 2022-01-10 2022-01-10 Travel 1.2.840.1 1.2.793.407 6364 059039 Methodi 00:00:00 00:00:[address] 3.430.2.7 0.2.7.3.698 Ho spita .3.643686 084.8 l .8 2022-01-07 2022-01-07 Outpatient Baum_L [facility] U 949379- [place] 08:21:00 08:21:00 [facility] 2021-12-13 2021-12-13 Outpatient Baum_L [facility] U [id number]- [place] 02:05:00 02:05:00 [facility] 2021-12-13 2021-12-13 Outpatient Baum_L [facility] HMU 573302- [place] 02:05:00 02:05:00 [facility] 2021-12-02 2021-12-02 Outpatient Baum_L [facility] U [id number] [place] 01:42:00 01:42:00 [facility] 2021-11-29 2021-11-29 Outpatient Baum_L [facility] U [id number] [place] 11:50:00 11:50:00 [facility] 2021-11-29 2021-11-29 Outpatient Nora, [facility] U 0434s00 c-9 00:00:00 00:00:00 Jonna [id number]-5 [id number] 2021-11-29 2021-11-29 Jonna [facility] [place] - [id number] [place] 00:00:00 00:00:00 MD Nora: Adriano Metr o 7777 [facility] Urology [facility] [address], [place] [address] , Ph. 2021-11-27 2021-11-27 Outpatient Baum_L [facility] U 121966- [place] 10:16:00 10:16:00 89047 [facility] 2021-11-27 2021-11-27 Outpatient Baum_L [facility] U [id number] [place] 10:16:00 10:16:00 04335 [facility] 2021-11-26 2021-11-[address] [facility] 1.2.840.1 [id number] Methodi 13:36:11 23:59:00 Encounter Suleman Polo 92267.1.[address] 3.430.2.7 Hospit a .3.358264 l .8 2021-11-26 2021-11-[address] [facility] 1.2.840.1 [id number] Methodi 13:36:11 23:59:00 Encounter Suleman Polo 11618.1.[address] 3.430.2.7 Hospit a .3.843678 l .8 2021-11-26 2021-11-[address] [facility] 1.2.840.1 1.2.449.904 9324 819972 Methodi 00:00:00 00:00:[address] 3.430.2.7 0.2.7.3.698 Ho spita .3.893645 084.8 l .8 2021-11-26 2021-11-26 Transcribe [place], 1.2.840.1 [id number] 451 [id number] Methodi 00:00:00 00:00:00 Orders Suleman T. 74683.1.1 476 s t 3.430.2.7 Hospit a .3.006839 l .8 2021-11-26 2021-11-26 Travel 1.2.840.1 1.2.884.966 9485 199003 Methodi 00:00:00 00:00:[address] 3.430.2.7 0.2.7.3.698 Ho spita .3.199728 084.8 l .8 2021-11-26 2021-11-26 Transcribe Giorgio, 1.2.840.1 [id number] 550 [id number] Methodi 00:00:00 00:00:00 Orders Suleman T. 46719.1.1 476 s t 3.430.2.7 Hospit a .3.915618 l .8 2021-11-11 2021-11-12 Outpatient GORDON, [facility] CAR 7500 [facility] 15:54:00 11:00:00 SALLY 2021-02-06 2021-02-06 Outpatient SEVERO [facility] 2099 [id number] [place] 00:00:00 00:00:[address] 2020-12-19 2020-12-19 Outpatient CHARLIE [facility] [id number] 796 [place] 00:00:00 00:00:00 LAWANDA [address] 2020-12-12 2020-12-12 Outpatient SEVERO [facility] 2099 [id number] [place] 00:00:00 00:00:[address] 2020-11-28 2020-11-28 Outpatient [facility] [id number] 228 [place] 00:00:00 00:00:[address] 2020-11-14 2020-11-14 Outpatient VALENTINO [facility] [id number] 495 [place] 00:00:00 00:00:00 SERA [address] 2020-11-01 2020-11-05 Inpatient ISAAC, [facility] 021 [id number] 94 [place] 00:00:00 00:00:00 SANDY [address] 2020-10-30 2020-10-30 Outpatient QUANGSEVERO [facility] 2099 [id number] [place] 00:00:00 00:00:[address] 2020-10-24 2020-10-24 Outpatient QUANGSEVERO [facility] 2099 [id number] [place] 00:00:00 00:00:[address] 2020-10-15 2020-10-15 Outpatient QUANGSEVERO [facility] 2100 [id number] [place] 00:00:00 00:00:[address] 2020-10-03 2020-10-03 Outpatient QUANGSEVERO [facility] 2099 [id number] [place] 00:00:00 00:00:[address] 2020-10-03 2020-10-03 Outpatient QUANG [facility] 2099 [id number] [place] 00:00:00 00:00:[address] 2020-04-23 2020-04-23 Telephone KARAN Marrero 1.2.055.245 4695 9173 00:00:00 00:00:00 Mike GOMEZ 350.1.13.10 [facility] 4.2.7.2.686 [id number] 019 2020-04-23 2020-04-23 Telephone KARAN Marrero 1.2.069.404 7915 9173 [facility] 00:00:00 00:00:00 Mike GOMEZ 350.1.13.[address] [facility] 4.2.7.2.686 Cl as [id number] [address] 2020-04-22 2020-04-22 Laboratory Only, Pcp [facility] 1.2.840.114 7 [id number] 15:23:29 15:38:29 Only Test PRIMARY 350.1.13.10 [facility] 4.2.7.2.686 PAVILLION [id number] [facility] 2020-04-22 2020-04-22 Laboratory Only, Pcp Test [facility] 1.2.840. 114 [id number] [facility] 15:23:29 15:38:29 Only Mike Marrero H PRIMARY 350.1.13.10 ity of CARE 4.2.7.2.686 Laurie LUCAS [id number] [place] [address] [place] 2020-04-22 2020-04-22 Outpatient Ángel MARRERO [facility] [id number] 374 [facility] 15:30:00 15:30:00 MIKE [facility]ber[facility]on [facility] 2017-03-31 2017-03-31 [id number] [place] 13:29:00 13:29:00 JIGAR [facility] 2015-12-11 2015-12-11 [facility] 1000 [id number] [place] 16:21:00 23:59:00 [facility] Results Test Description Test Time Test Comments Results Result Comments Source POC creatinine 2022-10-17 13:29:00 Test Item Value Reference Range Interpretation Comme nts POC creatinine (test code = 1.0 mg/dl 0.7-1.2 Transplanter Orchid Name: Beto 30641-0) Karenvice ID: [id number] [facility] [id number] 13:29:00 Test Item Value Reference Range Interpretation Comments Estimated GFR (test 75 mL/min/1.73 m2 [facility] Units code = 98607-7) Interpretati onG1 >=90 Normal or highG 2 60-89 Mildly decrease dG3a 45-59 Mildly to moder ately lbtgabihmZ2o 30 -44 Moderately to s everely decreasedG4 15- 29 Severely decreasedG5 <15 Kidney failureThe eGFR was calculated trev navarrete the Chronic Kidney Disease Epidemiology Co llaboration (CKD-EPI) equat ion. Interpretation is based on recommendations of the National Kidney Foundation-Kidn ey Disease Outcomes Qualit y Initiative (NKF-KDOQI) pub lished in 2014. [facility] [id number] 21:01:08 Test Item Value Reference Range Interpretation Comments Case number (test code = [id number]) Surgical pathology See link below for report (test code = PDF Lab Report 5295) Result status (test code This is Final Report = [id number]) for [id number] [facility] [id number] 21:01:08 Test Item Value Reference Range Interpretation Comments Case number (test code = [id number]) Surgical pathology See link below for report (test code = PDF Lab Report 2255) Result status (test code This is Final Report = [id number]) [facility] [id number] [facility] [id number] 15:23:14 Test Item Value Reference Range Interpretation Comments Case number (test code = [id number]) Cytology See link below for (non-gynecological) PDF Lab Report report (test code = 1178) Result status (test code This is Final Report = [id number]) for [id number] [facility] [id number] 15:23:14 Test Item Value Reference Range Interpretation Comments Case number (test code = [id number]) Cytology See link below for (non-gynecological) PDF Lab Report report (test code = 1178) Result status (test code This is Final Report = [id number]) for [id number] [facility] [id number] 15:23:00 Test Item Value Reference Range Interpretation Comments POC glucose (test code = 132 mg/dL 65-99 H Ope rator Name: [id number]) Emiliano Nathane vice ID: [id number] able: RN Notified Lab Interpretation (test Abnormal code = 03545-8) [facility] [id number] 15:23:00 Test Item Value Reference Range Interpretation Comments POC glucose (test code = 132 mg/dL 65-99 H Ope rator Name: [id number]) Emiliano Nathane vice ID: [id number] able: RN Notified Lab Interpretation (test Abnormal code = 90686-7) [facility] Pre/Post [id number] 13:15:15 Test Item Value Reference Range Interpretation Comments Ventricular rate (test code = 253) Atrial rate (test code = 255) QRSD interval (test code = 260) QT interval (test code = 264) QTC interval (test code = 265) P axis 1 (test code = 267) QRS axis 1 (test code = 268) T wave axis (test code = 270) EKG impression (test Ventricular-paced code = 273) rhythm-Abnormal ECG-In automated comparison with ECG of 06-JAN-2018 12:42,-Electronic ventricular pacemaker has replaced Sinus rhythm- [facility] [id number] 13:15:15 Test Item Value Reference Range Interpretation Comments Ventricular rate (test 66 code = 253) Atrial rate (test code 66 = 255) QRSD interval (test 166 code = 260) QT interval (test code 476 = 264) QTC interval (test code 499 = 265) P axis 1 (test code = 54 267) QRS axis 1 (test code = -85 268) T wave axis (test code 84 = 270) EKG impression (test Ventricular-paced code = 273) rhythm-Abnormal ECG-In automated comparison with ECG of 06-JAN-2018 12:42,-Electronic ventricular pacemaker has replaced Sinus rhythm- [facility] macro (dipstick) panel - [id number] 11:01:00 Test Item Value Reference Range Interpretation Comments leukocytes (test code negative neg = leukocytes) urobilinogen (test 0.2 E.U./dL sm amt (.5-1mg/dL) code = urobilinogen) protein (test code = negative See_Comment [Autom ated protein) message] The sy stem which generated this result transmitted reference range : <=150 mg/d. The reference range was not used to interpret this result as normal/abnormal . pH (test code = pH) 5.5 4.5-8 blood (test code = negative See_Comment [Automat ed blood) message] The sy stem which generated this result transmitted reference range : <=3 RBC. The reference range was not used to interpret this result as normal/abnormal . specific gravity 1.020 1.005-1.025 (test code = specific gravity) ketone (test code = negative none ketone) bilirubin (test code negative neg = bilirubin) glucose (test code = negative See_Comment [Autom ated glucose) message] The sy stem which generated this result transmitted reference range : <=130 mg/d. The reference range was not used to interpret this result as normal/abnormal . color (test code = yellow yellow color) clarity (test code = clear clear or cloudy clarity) nitrite (test code = negative neg nitrite) [facility] [id number] (COVID-19) RNA [Presence] in Respiratory specimen by DAISY with probe [id number] 19:03:11 Test Item Value Reference Range Interpretation Comments SARS-CoV-2 (COVID-19) RNA Not detected Not-Detected [Presence] in Respiratory specimen by DAISY with probe detection (test code = 55487-9) [facility]
--- NOTE | 2022-11-18 21:47 | ER ---
Nurse's Notes [facility] Name: Lopez Antonio Age: 71 yrs Sex: Male : 1950 Arrival Date: 11/18/2022 Time: 19:36 Bed IW1 Private MD: Diagnosis: Presentation: 11/18 20:14 Chief complaint: Patient states: nose bleed since 5 30 on xarelto and plavix kl inpreparation for watchman procedure pt did use afrin bleeding slowed no active bleeding at this time. Coronavirus screen: Vaccine status: Patient reports receiving the 2nd dose of the covid vaccine. Ebola Screen: Patient negative for fever greater than or equal to 101.5 degrees Fahrenheit, and additional compatible Ebola Virus Disease symptoms. Initial Sepsis Screen: Does the patient meet any 2 criteria? No. Patient's initial sepsis screen is negative. Does the patient have a suspected source of infection? No. Patient's initial sepsis screen is negative. Risk Assessment: Do you want to hurt yourself or someone else? Patient reports no desire to harm self or others. Onset of symptoms was November 18, 2022 at 17:30. 20:14 Method Of Arrival: Ambulatory 20:14 Acuity: LUISA 4 kl 21:46 Note pt reports not bleeding anymore left er. Triage Assessment: 20:18 General: Appears in no apparent distress. comfortable, Behavior is calm, cooperative. Pain: Denies pain. Historical: - Home Meds: 20:18 Crestor Oral [Active]; lisinopril Oral [Active]; Plavix Oral [Active]; - PMHx: 20:20 Hypertensive disorder; bradycardia; - PSHx: 20:18 pace maker; kl - Immunization history:: Adult Immunizations up to date. - Social history:: Smoking status: Patient denies any tobacco usage or history of. Vital Signs: 20:14 BP 173 / 110; kl 20:19 Pulse 82; Resp 16; Temp 98(O); Pulse Ox 98% ; Weight 91.63 kg (R); Height 6 ft. 2 in. kl (187.96 cm); 20:19 Body Mass Index 25.93 (91.63 kg, 187.96 cm) ED Course: 19:36 Patient arrived in ED. ag3 20:14 Wes Contreras MD is Attending Physician. baljinder 20:17 Triage completed. Administered Medications: No medications were administered Outcome: 21:47 Patient left the ED. Signatures: Anabell Castro RN RN Wes Olivier MD MD cha Gomez, Alice ag3 Corrections: (The following items were deleted from the chart) 20:18 20:18 PMHx: Hypertension; [facility] 20:18 20:18 PMHx: High Cholesterol; [facility]
[2022-11-18 21:59] VITALS: BP 173/110
[2022-11-18 22:00] VITALS: TEMP 98; O2SAT 98
== END 2022-11-18 21:47 | disposition left against medical advice (07) ==
LOC: ER 19:30
DX: Z02.9 Encounter for administrative examinations, unspecified (principal)